=== PATIENT | female | born 1960 | race Caucasian/White ===

== ENCOUNTER → 2024-03-25 15:19 | Outpatient (REF) | payer OTHER, SELFPAY | LOC: RCS 15:19 | PROVIDERS: ATTENDING PHYSICIAN Internal Medicine Cardiovascular Disease; FAMILY PHYSICIAN Physician Assistant | DX: R94.31 Abnormal electrocardiogram [ECG] [EKG] (principal); I45.2 Bifascicular block | CPT/HCPCS: 93306 ==